=== PATIENT | male | born 1955 | race Caucasian/White ===

== ENCOUNTER 2021-02-18 07:40 | Inpatient (IN) ==
--- NOTE | 2021-02-02 11:20 | PAT Medication Instructions ---
Medication Instructions Date of Service February 02, 2021 Home Medications cholecalciferol (vitamin D3) [Vitamin D3] 10 mcg PO QAM cyanocobalamin (vitamin B-12) 500 mcg PO QAM gabapentin 300 mg PO TID omega-3 fatty acids [Fish Oil] 1,000 mg PO QAM oxycodone 7.5 mg PO DAILY zinc 50 mg PO QAM STOP taking 2 weeks before surgery (or as soon as possible if surgery is within 2 weeks) omega-3 fatty acids [Fish Oil] 1,000 mg PO QAM DO NOT take the morning of surgery cholecalciferol (vitamin D3) [Vitamin D3] 10 mcg PO QAM cyanocobalamin (vitamin B-12) 500 mcg PO QAM zinc 50 mg PO QAM Take morning of surgery With a small sip of water, OTHERWISE NOTHING TO EAT OR DRINK AFTER MIDNIGHT: gabapentin 300 mg PO TID oxycodone 7.5 mg PO DAILY (okay to take up to 4 hours prior to surgery if needed) Take evening before surgery gabapentin 300 mg PO TID Other Notes If you have any questions please call us at [phone] or [phone] or [phone] or [phone]
--- NOTE | 2021-02-05 08:41 | Anesthesiology Consultation ---
Date of Service February 05, 2021 Assessment & Plan (1) Encounter for pre-operative examination: COVID screening: Per assessment on 02/05: Travel screen negative, no known COVID- 19 positive contacts or current COVID-19 related symptoms. Surgeon arranging preop COVID testing (scheduled 02/16, [facility]- pt states he will confirm with surgeon regarding ability to have done at this location and speed at which their tests result). Awaiting results. Chart Review Chart Review: Acceptable Risk for Surgery and Patient seen in Pre Admission Testing Teaching & Discussion Pre-Anesthesia Teaching/Discussion Notes: Instructed NPO after midnight before surgery,except medications with 15 cc of water. Medication instructions provided according to the PAT guidelines. History Surgery Operation Date: 02/18/21 10:25 Proposed Procedures p L4-S1 Decompression/Fusion, Spinal Cord Monitoring - Rodrigo Rodriguez DO Height/Weight Height: 6 ft Weight: 85.2 kg Allergies Allergy/AdvReac Type Severity Reaction Status Date / Time No Known Allergies Allergy Unknown Verified 01/28/21 10:20 Medications Home Medications Medication Instructions Recorded Confirmed Last Taken cholecalciferol (vitamin D3) 10 10 mcg PO QAM 01/28/21 01/28/21 Unknown mcg (400 unit) chewable tablet (Vitamin D3) cyanocobalamin (vitamin B-12) 500 500 mcg PO QAM 01/28/21 01/28/21 Unknown mcg tablet gabapentin 300 mg capsule 300 mg PO TID 01/28/21 01/28/21 Unknown omega-3 fatty acids 1,000 mg PO QAM 01/28/21 01/28/21 Unknown oxycodone 7.5 mg tablet,oral ONLY 7.5 mg PO DAILY 01/28/21 01/28/21 Unknown (not for feeding tubes) zinc 50 mg tablet 50 mg PO QAM 01/28/21 01/28/21 Unknown Past Medical History Medical History Chronic anemia Degenerative disc disease Neuropathy Exercise / Class Metabolic Activity II 4-5 Yardwork/Stairs/Walk up hill (one FS (no CP, no SOB)) Past Family History Family History Grandfather (Paternal) Colon cancer Past Surgical History Surgical History History of arthroscopy R/L knees (x6 total) History of colonoscopy History of cystoscopy History of esophagogastroduodenoscopy (EGD) History of tooth extraction History of total knee replacement left x5, right x1 History of total shoulder replacement left Hx of vasectomy Past Anesthesia History No Hx of Anesthesia Complications and No Family Hx of Anesthesia Complications History of PONV No Hx of PONV and No Hx of Motion Sickness Social History Smoking Status: Current every day smoker tobacco type: cigarettes Smoking cigarettes per day: 7-8 cigs/day (tobacco use x 30 years) Do You Dip or Chew Tobacco: No Hx Alcohol Use: Yes Alcohol type: beer alcohol intake frequency: 3 or more drinks per day (3-4 "light" beers/day (evening)) Hx Substance Use: No substance use type: does not use Review of Systems Patient denies chest pain, shortness of breath, dyspnea on exertion, fever, chills, cough, wheezing, palpitations. Physical Exam Vital Signs VITALS BP 150/92 P 71 TEMP 98.3 SP02 96%RA RESP 16 PHYSICAL Full cervical extension range of motion. Full TMJ range of motion. TMD 3 finger breaths Mallampati Score 3 Dentition: intact, + caps (several) Lungs: clear throughout to auscultation Cardiac: regular rate and rhythm, no murmurs noted Spine: normal Carotid arteries: negative bruit Extremities: no edema Lab Results Anesthesia Preop Results Results Anesthesia Widget: WBC 5.81 K/uL (4.8-10.8) 02/05/21 Hgb 12.5 g/dL (14.0-18.0) L 02/05/21 Hct 37.5 % (42-52) L 02/05/21 Plt 245 K/uL (130-400) 02/05/21 Na 138 mmol/L (136-145) 02/05/21 K 4.8 mmol/L (3.5-5.1) 02/05/21 Cl 107 mmol/L (98-107) 02/05/21 CO2 28 mmol/L (21-32) 02/05/21 BUN 19 mg/dl (7-18) H 02/05/21 Creat 0.92 mg/dl (0.6-1.4) 02/05/21 Glucose Level 74 mg/dl (70-99) 02/05/21 PT 10.3 Seconds (9.0-12.0) 02/05/21 PTT 24.0 Seconds (21.0-31.0) 02/05/21 INR 1.0 (0.9-1.1) 02/05/21 Urine Color Dark Yellow 02/05/21 Urine Appearance Clear (Clear) 02/05/21 Urine pH 5.5 (4.5-7.5) 02/05/21 Urine Specific [place] 1.031 (1.000-1.030) H 02/05/21 Urine Protein Trace (Negative) H 02/05/21 Urine Glucose (UA) Negative (Negative) 02/05/21 Urine Ketones Trace (Negative) H 02/05/21 Urine Blood 1+ (Negative) H 02/05/21 Urine Nitrite Negative (Negative) 02/05/21 Urine Bilirubin 1+ (Negative) H 02/05/21 Urine Urobilinogen Negative (Negative) 02/05/21 Urine Leukocyte Esterase Negative (Negative) 02/05/21 Urine WBC (Auto) 1-5 /hpf (0-5) 02/05/21 Urine RBC (Auto) 10-30 /hpf (0-4) H 02/05/21 Urine Hyaline Casts (Auto) 5-10 /lpf (0-5) H 02/05/21 Urine Epithelial Cells (Auto) 5-10 /lpf (0-5) H 02/05/21 Urine Bacteria (Auto) Negative (Negative) 02/05/21 Blood Type O Positive 02/05/21 Antibody Screen NEGATIVE 02/05/21 Testing Electrocardiogram Date: 02/05/21 Normal sinus rhythm at 65 bpm. Early repolarization. Patient reports good functional status at PAT visit from same day. Chest X-Ray Date: 02/05/21 Findings: + NAD
[~2021-02-18 07:40] MED LIST: ACETAMINOPHEN 500 MG TAB PO SCH; CeleBREX 200 MG CAP PO SCH; GABAPENTIN 600 MG DOSE PO SCH; LR 15ML/HR IV SCH; ceFAZolin 2000MG 2,000 MG/15 ML SYR IV SCH
[2021-02-18] MEDS ORDERED: PROPOFOL IV EMULSION 10 MG/ML 20 ML VIAL IV ONE (08:38)
[2021-02-18] MEDS ORDERED: MIDAZOLAM HCL 1 MG/ML 2ML VIAL ONE (08:38)
[2021-02-18] MEDS ORDERED: GLYCOPYRROLATE 0.2 MG/ML VIAL ONE ×2 (08:38→12:08)
[2021-02-18] MEDS ORDERED: LIDOCAINE 2% 2 ML VIAL/AMP(20MG/ML) INFIL ONE (08:38)
[2021-02-18] MEDS ORDERED: HYDROmorphone INJ 2 MG/ML SYR/VIAL ONE (08:39)
[2021-02-18] MEDS ORDERED: KETAMINE 50 MG/5 ML SYRINGE ONE (08:39)
[2021-02-18] MEDS ORDERED: fentaNYL citrate 100 MCG/2 ML VIAL ONE (08:39)
[2021-02-18] MEDS ORDERED: ONDANSETRON INJ 2 MG/ML 2 ML VIAL IV PRN ×2 (08:59→15:35)
[2021-02-18] MEDS ORDERED: ATROPINE SULFATE 0.1 MG/ML 10ML SYR IV PRN (08:59)
[2021-02-18] MEDS ORDERED: ePHEDrine sulfate 50 MG/ML AMP IV PRN (08:59)
--- NOTE | 2021-02-18 09:37 | History & Physical Bridge Note ---
Date of Service February 18, 2021 History & Physical Bridge Note I have examined the patient, reviewed the History & Physical and in the interval since the performance of the History & Physical I have noted the following changes of clinical significance: no changes noted
--- NOTE | 2021-02-18 09:39 | History & Physical Report ---
Date of Service February 18, 2021 Assessment & Plan (1) Neurogenic claudication due to lumbar spinal stenosis: Plan: L4-S1 decompression fusion History of Present Illness Chief Complaint: Back and leg pain Primary Care Provider: Leander Stewart This is a 65-year-old male presents with chronic persistent back and leg pain after failing course of nonoperative care is here for surgical action. Allergies Allergy/AdvReac Type Severity Reaction Status Date / Time No Known Allergies Allergy Unknown Verified 01/28/21 10:20 Home Medications Medication Instructions Recorded Confirmed Type cholecalciferol (vitamin D3) 10 10 mcg PO QAM 01/28/21 02/18/21 History mcg (400 unit) chewable tablet (Vitamin D3) cyanocobalamin (vitamin B-12) 500 500 mcg PO QAM 01/28/21 02/18/21 History mcg tablet gabapentin 300 mg capsule 300 mg PO TID 01/28/21 02/18/21 History omega-3 fatty acids 1,000 mg PO QAM 01/28/21 02/18/21 History oxycodone 7.5 mg tablet,oral ONLY 7.5 mg PO DAILY 01/28/21 02/18/21 History (not for feeding tubes) zinc 50 mg tablet 50 mg PO QAM 01/28/21 02/18/21 History Past Med/Surg History Medical History Chronic anemia Degenerative disc disease Neuropathy Surgical History History of arthroscopy R/L knees (x6 total) History of colonoscopy History of cystoscopy History of esophagogastroduodenoscopy (EGD) History of tooth extraction History of total knee replacement left x5, right x1 History of total shoulder replacement left Hx of vasectomy Family History Grandfather (Paternal) Colon cancer Social History Smoking Status: Current every day smoker Cigarettes Per Day: 7-8 cigs/day (tobacco use x 30 years); Second Hand Exposure: No; Do You Dip or Chew Tobacco: No; Tobacco Cessation Education Requested by Patient: No Hx Alcohol Use: Yes Alcohol type: beer Hx Substance Use: No Preferred Language: Sinhala Communication Ability: Effective Mannequin Sander And Finisher Required: No Beliefs That Will Affect Care: None Current Living Situation: Spouse Other Information That Helps Us Care for You: No Feels Safe at Home: Yes Safety Concerns: Feels Safe At This Time Assistive Devices: Glasses Physical Exam Physical Exam: Patient is alert and oriented Heart regular rhythm Lungs clear to auscultation Results & Data ([facility]) Vital Signs (Past 12 Hours) Vital Signs Temp Pulse Resp BP Pulse Ox 02/18/21 08:05 36.5 C 61 18 143/82 H 97
[2021-02-18] MEDS ORDERED: BUPIVACAINE/EPINEPHRINE 0.5% MPF 1:200,000 30 ML VIAL ONE (09:58)
[2021-02-18] MEDS ORDERED: FLOSEAL HEMOSTATIC MATRIX 10ML TOP ONE (11:07)
[2021-02-18] MEDS ORDERED: NEOSTIGMINE METHYLSULFATE 1 MG/ML 10ML VIAL ONE (12:08)
--- NOTE | 2021-02-18 12:38 | Operative Report ---
Post Operative Report Pre & Post Diagnosis Operation Date: 02/18/21 09:35 Pre-Op Diagnosis: Neurogenic Claudication due to Lumbar Spinal Stenosis Spondylolisthesis L4-L5 Post-Op Diagnosis: Same I identified the patient and participated in the time-out.: Yes Procedure Operation Date: 02/18/21 09:35 Actual Procedures #1 lumbar decompression bilateral medial facetectomies and foraminotomies L3-4, L4-5 and L5-S1. #2 posterior spinal fusion L4-5 L5-S1. #3 placed posterior instrumentation L4-5 L5-S1. #4 interbody fusion L4-L5.. #5 placement peek cage 12 x 26 mm at L4-L5. #6 placement locally harvested morselized autograft and posterior gutters. #7 placement of I factor combined with vi toss interbody space and posterior gutters. Surgeon Rodrigo Rodriguez DO Cracker Dough Mixer Elisabeth Bentley Estimated Blood Loss 100 Findings Consistent with Post-Op Diagnosis Specimens None Indications This is a 65-year-old male presents with above-mentioned diagnosis since course of nonoperative care is here for the above-mentioned procedure. Description of Procedure Patient was met with identified informed consent obtained. Patient was then taken to the operative suite underwent a patient placed in prone position the Ac table top less than frame. All bony prominences well-padded eyes inspected to ensure no external pressure placed upon the. This point lumbar spine was prepped and draped in a sterile fashion. Sharp dissection with the assistance of Bovie cautery was performed down to and exposing the lamina and transverse processes of L4-L5 and S1 level bilaterally. From caudal cephalad fashion complete laminectomy of L5 L4 and proximal laminectomy L3 was performed including bilateral medial facetectomies and foraminotomies addressing severe spinal stenosis. Pedicle screws were then placed in L4-L5 and S1 levels bilaterally with assistance of fluoroscopy the proper sized sai placed. By way of a transforaminal approach on the right complete discectomy of L4-L5 was performed endplates curetted to subcortical bleeding bone and the 12 x 26 mm peek cage filled with I factor tapped in position. The rods were locked in final position bilaterally. The transverse processes of L4 and L5 and sacral ala were then burred to subcortical leading bone. I factor combined with Vitoss was placed in the posterior gutters. 15 round NAE drain inserted. The incision was then closed with Monocryl fascia 2-0 Vicryl subcutaneously and 4 Monocryl for final skin closure. Steri-Strip sterile dressings placed. Patient will continue PACU stable condition. Please note spinal cord monitoring was last that the procedure no changes noted. Lastly Elisabeth Bentley was present at the entire procedure involved the patient positioning complex portions of the surgery and final skin closure. I attest to the content of the Intraoperative Record and any orders documented therein. Any exceptions are noted below.
--- NOTE | 2021-02-18 12:42 | Fluoroscopy Report ---
FL lumbar spine 2-3V HISTORY: 65 years-old Male L4-S1 DECOMP/FUSION COMPARISON: None TECHNIQUE: 3 spot fluoroscopic images of the lumbar spine were obtained utilizing 22.6 seconds fluoro scopy time FINDINGS: Posterior interbody sai and screw fusion noted at L4-S1 with discectomy changes at L4-L5. Multilevel spondylitic spurring. The hardware appears intact. No acute fracture or unexpected retained foreign b parth identified. IMPRESSION: Fluoroscopic assistance as above. ACT 112: Negative or not required by law. The above report was generated using voice recognition software. It may contain grammatical, syntax o r spelling errors. Electronically signed by: Dustin Ratliff M.D. 02/18/2021 12:41 PM
[2021-02-18] MEDS: fentaNYL citrate 100 MCG/2 ML VIAL IV PRN ×4 (13:00→13:15)
[2021-02-18] MEDS: HYDROmorphone INJ 1 MG/ML SYRINGE IV PRN ×7 (13:25→14:00)
--- NOTE | 2021-02-18 15:31 | Anesthesiology Progress Note ---
Date of Service February 18, 2021 Anesthesia Post Procedure Vital Signs Vital Signs: Temp Pulse Pulse Resp BP BP Pulse Ox 02/18/21 15:17 36.8 C 77 20 150/82 H 100 02/18/21 14:20 36.6 C 77 23 139/90 100 02/18/21 14:10 36.6 C 61 12 139/83 94 02/18/21 14:00 36.6 C 71 14 142/84 H 96 02/18/21 13:50 36.6 C 81 12 138/82 81 L 02/18/21 13:40 36.6 C 71 15 149/85 H 96 02/18/21 13:30 76 25 H 149/81 H 100 02/18/21 13:20 76 25 H 149/81 H 100 02/18/21 13:10 67 11 L 138/74 99 02/18/21 13:00 74 11 L 148/81 H 100 02/18/21 12:50 36.4 C L 81 14 144/82 H 100 02/18/21 08:05 36.5 C 61 18 143/82 H 97 Pain Intensity Posterior Neck: Pain Intensity: 4 Back: Pain Intensity: 5 Transfer of Care Handoff Completed per policy Notes Mental Status: alert / awake / arousable and participated in evaluation Patient Amnestic to Procedure: Yes Nausea / Vomiting: adequately controlled Pain: adequately controlled Airway Patency, RR, SpO2: stable & adequate BP & HR: stable & adequate Hydration State: stable & adequate Anesthetic Complications: no major complications apparent and Pt Satisfied with anesthetic care
[2021-02-18] MEDS ORDERED: ACETAMINOPHEN 500 MG TAB PO PRN (15:35)
[2021-02-18] MEDS ORDERED: ONDANSETRON 4 MG OD TAB PO PRN (15:35)
[2021-02-18] MEDS ORDERED: diphenhydrAMINE Capsule 25 MG CAP PO PRN (15:35)
[2021-02-18] MEDS ORDERED: HYDROmorphone INJ 1 MG/ML SYRINGE IV PRN (15:35)
[2021-02-18] MEDS ORDERED: SOD PHOSPHATE/SOD BIPHOSPHATE ENEMA 132 ML BTL PR PRN (15:35)
[2021-02-18] MEDS ORDERED: ACETAMINOPHEN 1,000 MG/100 ML VIAL IV PRN (15:35)
[2021-02-18] MEDS ORDERED: LORazepam 0.5 MG TAB PO PRN (15:35)
[2021-02-18] MEDS ORDERED: traMADol HCL 50 MG TABLET PO PRN (15:35)
[2021-02-18] MEDS ORDERED: FAMOTIDINE 20 MG TAB PO PRN (15:35)
[2021-02-18] MEDS ORDERED: NALOXONE HCL 0.4 MG/1 ML VIAL/CARP IV PRN (15:35)
[2021-02-18] MEDS ORDERED: LORazepam 0.5 MG/1 ML VIAL IV PRN (15:35)
[2021-02-18] MEDS ORDERED: hydrOXYzine HCl 25 MG TAB PO PRN (15:35)
[2021-02-18] MEDS ORDERED: METOCLOPRAMIDE HCL INJ 5 MG/ML 2 ML VIAL IV PRN (15:35)
[2021-02-18] MEDS ORDERED: DO NOT ADMINISTER PNEUMOCOCCAL VACCINE PRN (15:35)
[2021-02-18] MEDS ORDERED: DO NOT ADMINISTER FLU VACCINE PRN (15:35)
[2021-02-18] MEDS ORDERED: ALUMINUM/MAGNESIUM SUSP 30 ML UDC PO PRN (15:35)
[2021-02-18] MEDS ORDERED: PROMETHAZINE HCL 12.5 MG in SODIUM CHLORIDE 0.9% 50 ML IV PRN (15:35)
[2021-02-18] MEDS: oxyCODONE HCL IR 5 MG TAB (IMMEDIATE RELEASE) PO PRN ×2 (15:58→20:26)
[2021-02-18] MEDS: LACTATED RINGER'S 1,000 ML IV SCH (15:58)
[2021-02-18] MEDS: GABAPENTIN 300 MG CAP PO SCH ×2 (16:44→20:27)
--- NOTE | 2021-02-18 16:51 | Consultation ---
Date of Consultation February 18, 2021 Assessment & Plan (1) Status post lumbar surgery: (2) Degenerative disc disease: Post op day# 0 S/P L4-S1 decompression and fusion by Dr Jennifer ORELLANA#100ml -pain management per ortho -wound management per ortho -PT/OT as appropriate -DVT prophylaxis per ortho -incentive spirometry -monitor H&H for acute blood loss anemia; pre-op Hgb: 12.5 (3) Chronic anemia: Baseline Hgb: 12.5 Monitor H&H DVT Prophylaxis -SCDs per ortho Disposition per primary service Follows with Dr Leander Stewart in [place], [place] for routine care Pt was seen and care coordinated with Dr Jimenez. See addendum Thank you for this consultation. We will follow the patient with you during their hospital stay. You can reach a [facility] via [employer]. Supervising Physician Co-Signing Physician Notes I saw this patient with the physician hospital administrative assistant, I participated in the history, physical, review of systems, and physical exam on this consult. I reviewed the medications with the patient and the physician hospital administrative assistant and helped reconcile the medications. I helped take a detailed family and social history as well. I formulated the assessment and plan personally with the physician hospital administrative assistant and went over it with the patient. ROS-No Headache, No Visual Changes, No Nausea, No Vomiting, No Fever, No Chills, No Neck Pain or Stiffness, No Chest Pain, No Palpitations, No SOB, No VOSS, No Cough, No Sputum, No Wheezing, No Abdominal Pain, No Diarrhea, No Hematemesis, No Hemoptysis, No Unexpected Weight Loss, No Flank pain, No Melena, No Hematochezia, No Frequency, No Urgency, No Burning, No Hematuria, No Rashes, No Diaphoresis. Appetite is Normal, Sore Back Physical Exam Gen-AAO x 3, NAD, Afebrile, +Drain Head-NCAT, EOMI, PERRLA, Anicteric Sclera, No Posterior Pharyngeal Erythema Neck-Supple, No JVD, No Thyromegaly, No Masses, No LAD, No Bruits Lungs-Clear to Auscultation Bilaterally, No Rales, No Rhonchi, No Wheezing, No Crepitus Chest-No S4, +S1, +S2, No S3, No Murmurs, No Rubs, No Gallops, No Ectopy Abdomen-Soft, Bowel Sounds Present, Non Tender, Non Distended, No Hepatomegaly, No Splenomegaly, No Palpable Masses, No Rebound, No Rigidity, No Guarding Musculoskeletal-No CVAT Extremities-No Cyanosis, No Clubbing, No Edema Nuero-Cranial Nerves II-XII grossly intact, Motor WNL, DTRs WNL, Strength WNL, Non Focal Psych-Normal Mood History of Present Illness Requesting Physician: Dr Rodirguez Reason for Consultation: post op medical management Attending Physician: Rodrigo Rodriguez DO History of Present Illness Pt is 65 y/o M with PMH Chronic anemia, DDD, neuropathy seen in Medical consultation s/p L4-S1 decompression and fusion today by Dr. Rodriguez. Postop patient reports pain controlled. Prior to surgery he reports tingling of bilateral feet and now feels that has decreased. Still reports some numbness of bilateral feet. Denies nausea, vomiting. Has tolerated water. Denies shortness of breath or chest pain. Has White catheter in place. Denies fever/chills, [place], dizziness, palpitations, cough, sore throat, choking, abdominal pain, extremity weakness, extremity edema, rashes, urinary symptoms. Allergies Allergy/AdvReac Type Severity Reaction Status Date / Time No Known Allergies Allergy Unknown Verified 01/28/21 10:20 Home Medications Medication Instructions Recorded Confirmed Type cholecalciferol (vitamin D3) 10 10 mcg PO QAM 01/28/21 02/18/21 History mcg (400 unit) chewable tablet (Vitamin D3) cyanocobalamin (vitamin B-12) 500 500 mcg PO QAM 01/28/21 02/18/21 History mcg tablet gabapentin 300 mg capsule 300 mg PO TID 01/28/21 02/18/21 History omega-3 fatty acids 1,000 mg PO QAM 01/28/21 02/18/21 History oxycodone 7.5 mg tablet,oral ONLY 7.5 mg PO DAILY 01/28/21 02/18/21 History (not for feeding tubes) zinc 50 mg tablet 50 mg PO QAM 01/28/21 02/18/21 History Patient History Medical History (Updated 02/18/21 @ 16:55 by Yolette Rao PA-C) Chronic anemia Degenerative disc disease Neuropathy Surgical History (Updated 02/18/21 @ 16:55 by Yolette Rao PA-C) History of arthroscopy R/L knees (x6 total) History of colonoscopy History of cystoscopy History of esophagogastroduodenoscopy (EGD) History of tooth extraction History of total knee replacement left x5, right x1 History of total shoulder replacement left Hx of vasectomy Family History Grandfather (Paternal) Colon cancer Social History Smoking Status: Current every day smoker Cigarettes Per Day: 7-8 cigs/day (tobacco use x 30 years); Second Hand Exposure: No; Do You Dip or Chew Tobacco: No; Tobacco Cessation Education Requested by Patient: No Hx Alcohol Use: Yes Alcohol type: beer Hx Substance Use: No Preferred Language: Swedish Communication Ability: Effective Metal Model Maker Required: No Beliefs That Will Affect Care: None Current Living Situation: Spouse Other Information That Helps Us Care for You: No Feels Safe at Home: Yes Safety Concerns: Feels Safe At This Time Assistive Devices: Walker Review of Systems Review of Systems: All systems reviewed & are unremarkable except as noted in HPI & below Physical Exam Physical Exam: General: no distress, WDWN Head: normocephalic, atraumatic Eyes: conjunctiva non-injected, anicteric ENT: normal inspection external ears, nose, mucous membranes moist Neck: supple, trachea midline Lungs: clear, no respiratory distress, no wheezing/rhonchi/rales CV: RRR, no murmur, no pretibial edema Abd: normal BS, soft, non-tender Back: surgical dressing in place, NAE drain with small amount serosanguineous drainage Ext: no cyanosis, no calf tenderness; bilateral pedal pushes and pulls intact, distal pulses intact bilaterally, sensation to light touch intact Neuro: A&O x 3, no focal deficits noted, normal affect Skin: warm, dry Results & Data ([facility]) Vital Signs (Past 12 Hours) Vital Signs Temp Pulse Pulse Resp BP BP Pulse Ox 02/18/21 16:24 36.5 C 83 16 144/75 H 99 02/18/21 16:02 36.4 C L 82 20 150/80 H 100 02/18/21 15:17 36.8 C 77 20 150/82 H 100 02/18/21 14:20 36.6 C 77 23 139/90 100 02/18/21 14:10 36.6 C 61 12 139/83 94 02/18/21 14:00 36.6 C 71 14 142/84 H 96 02/18/21 13:50 36.6 C 81 12 138/82 81 L 02/18/21 13:40 36.6 C 71 15 149/85 H 96 02/18/21 13:30 76 25 H 149/81 H 100 02/18/21 13:20 76 25 H 149/81 H 100 02/18/21 13:10 67 11 L 138/74 99 02/18/21 13:00 74 11 L 148/81 H 100 02/18/21 12:50 36.4 C L 81 14 144/82 H 100 02/18/21 08:05 36.5 C 61 18 143/82 H 97
[2021-02-18] MEDS: KETOROLAC TROMETHAMINE 15 MG/ML VIAL IV SCH ×2 (17:07→22:33)
[2021-02-18] MEDS: ceFAZolin 2000MG 2,000 MG/15 ML SYR IV SCH (17:37)
[2021-02-18] MEDS: HYDROmorphone INJ 0.5 MG/0.5 ML SYR IV PRN (18:37)
[2021-02-18] MEDS: DOCUSATE SODIUM/SENNA 50/8.6MG TAB PO SCH (20:27)
[2021-02-19] MEDS: oxyCODONE HCL IR 5 MG TAB (IMMEDIATE RELEASE) PO PRN ×6 (00:08→22:34)
[2021-02-19] MEDS: LACTATED RINGER'S 1,000 ML IV SCH (01:59)
[2021-02-19] MEDS: ceFAZolin 2000MG 2,000 MG/15 ML SYR IV SCH (02:00)
[2021-02-19] MEDS: KETOROLAC TROMETHAMINE 15 MG/ML VIAL IV SCH ×2 (04:07→10:45)
[2021-02-19] MEDS: POLYETHYLENE (MIRALAX) 17 GM PACK PO SCH ×3 (06:03→18:15)
[2021-02-19 06:40] LABS: Basophils # (auto) 0.01 K/uL (0-0.2); Basophils % (auto) 0.1 %; Eosinophils # (auto) 0.01 K/uL (0-0.5); Eosinophils % (auto) 0.1 %; Hematocrit (blood only) 28.3 % (42-52); Hemoglobin 9.8 g/dL (14.0-18.0); Immature Granulocytes # (auto) 0.02 K/uL (0.00-0.02); Immature Granulocytes % (auto) 0.2 %; Lymphocytes # (auto) 1.07 K/uL (1.2-3.4); Lymphocytes % (auto) 11.2 %; Mean Corpuscular Hgb Conc 34.6 g/dL (32-36); Mean Corpuscular Volume 95.3 fL (80-100); Mean Platelet Volume 9.5 fL (7.4-10.4); Monocytes % (auto) 10.5 %; Neutrophils # (auto) 7.43 K/uL (1.4-6.5); Neutrophils % (auto) 77.9 %; Platelet Count 217 K/uL (130-400); RDW Coefficient of Variation 12.2 % (11.5-14.5); RDW Standard Deviation 42.5 fL (36.4-46.3); Red Blood Count 2.97 M/uL (4.7-6.1); White Blood Count 9.54 K/uL (4.8-10.8)
[2021-02-19 07:14] LABS: BUN Creatinine Ratio 14.5 (10-20); Calcium 8.2 mg/dl (8.5-10.1); Creatinine Clr Calc Pharmacy 95.4 ml/min; Est GFR (African American) 106.5 ml/min; Est GFR (Non-African American) 91.9 ml/min; Potassium 4.1 mmol/L (3.5-5.1)
[2021-02-19] MEDS: HYDROmorphone INJ 0.5 MG/0.5 ML SYR IV PRN ×2 (08:10→16:49)
--- NOTE | 2021-02-19 08:16 | Orthopedic Progress Note ---
Date of Service February 19, 2021 Assessment & Plan (1) Neurogenic claudication due to lumbar spinal stenosis: Plan: This time initiate physical therapy monitor his NAE operatively discharge home in next few days. Admission and Anticipated Discharge Date Admission Date: February 18, 2021 Subjective Back pain controlled leg symptoms improved Physical Exam Physical Exam: Patient is good strength testing is comfortable. Results & Data ([facility]) Vital Signs (Past 12 Hours) Vital Signs Temp Pulse Pulse Resp BP BP Pulse Ox 02/19/21 07:37 36.9 C 85 18 119/65 98 02/19/21 03:00 37.0 C 96 H 16 124/69 99 02/18/21 22:00 37.3 C 99 H 16 158/85 H 91
[2021-02-19] MEDS: GABAPENTIN 300 MG CAP PO SCH ×3 (08:45→20:12)
[2021-02-19] MEDS: CYANOCOBALAMIN 500 MCG TABLET (VITAMIN B-12) PO SCH (08:46)
[2021-02-19] MEDS: CHOLECALCIFEROL 400 UNITS 10 MCG TAB PO SCH (08:46)
[2021-02-19] MEDS: ZINC SULFATE 220 MG CAPSULE PO SCH (08:47)
[2021-02-19] MEDS: OMEGA-3 (PURIFIED FISH OIL) 1 GM CAP PO SCH (08:47)
[2021-02-19] MEDS: MAGNESIUM HYDROXIDE SUSP 30 ML UDC PO PRN (16:46)
--- NOTE | 2021-02-19 16:54 | Hospitalist Progress Note ---
Date of Service February 19, 2021 Assessment & Plan (1) Status post lumbar surgery: (2) Degenerative disc disease: Plan: S/P L4-S1 decompression and fusion by Dr Rodriguez Acute blood loss and hemodilution related anemia POD#1 Pain control No indication for PRBC transfusion currently Continue PT OT Appreciate orthopedics input Continue Incentive spirometry (3) Chronic anemia: Plan: Monitor CBC Management as above DVT Px: As per Primary team Admission and Anticipated Discharge Date Admission Date: February 18, 2021 Subjective Patient is seen and examined at bedside States having back pain at surgical site Also reports constipation Reports chronic numbness of the feet unchanged Denies chest pain, dyspnea, dizziness, nausea, abdominal pain Review of Systems Review of Systems: All systems reviewed & are unremarkable except as noted in Subjective Physical Exam Physical Exam: Physical Exam: Vitals signs as noted above General Appearance:Moderately built and nourished, no apparent distress Head: normocephalic, Atraumatic Eyes: normal inspection, EOMI Neck: supple, Trachea midline Respiratory/Chest: Normal breath sounds, CTA Cardiovascular: S1, S2, No murmur Abdomen/GI:Soft, Non tender, Bowel sounds present Back: Surgical site in dressing Extremities/Musculoskeletal:normal inspection, no edema Neurologic/Psych:AAOX3, grossly no focal neurological deficits Skin: normal color, warm Results & Data Results & Data ([facility]) Vital Signs (Past 12 Hours) Vital Signs Temp Pulse Resp BP Pulse Ox 02/19/21 14:47 37.6 C H 77 18 143/82 H 99 02/19/21 11:46 37.0 C 81 18 137/77 100 02/19/21 07:37 36.9 C 85 18 119/65 98 Laboratory Results Short CBC 02/19/21 Range/Units 05:55 WBC 9.54 (4.8-10.8) K/uL Hgb 9.8 L (14.0-18.0) g/dL Hct 28.3 L (42-52) % Plt Count 217 (130-400) K/uL BMP 02/19/21 05:55 Sodium 137 Potassium 4.1 Chloride 107 Carbon Dioxide 27 BUN 13 Creatinine 0.87 Glucose 110 H Calcium 8.2 L
[2021-02-19] MEDS: DOCUSATE SODIUM/SENNA 50/8.6MG TAB PO SCH (20:11)
[2021-02-20] MEDS: POLYETHYLENE (MIRALAX) 17 GM PACK PO SCH ×4 (00:12→19:56)
[2021-02-20] MEDS: oxyCODONE HCL IR 5 MG TAB (IMMEDIATE RELEASE) PO PRN ×5 (02:31→21:02)
[2021-02-20] MEDS ORDERED: bisacodyL 10 MG SUPP PR PRN ×2 (04:54→08:00)
[2021-02-20 07:25] LABS: Hematocrit (blood only) 26.3 % (42-52); Hemoglobin 8.6 g/dL (14.0-18.0)
[2021-02-20 07:57] LABS: BUN Creatinine Ratio 12.2 (10-20); Calcium 7.9 mg/dl (8.5-10.1); Creatinine Clr Calc Pharmacy 89.2 ml/min; Est GFR (African American) 100.9 ml/min; Est GFR (Non-African American) 87.1 ml/min; Potassium 3.6 mmol/L (3.5-5.1)
[2021-02-20] MEDS: GABAPENTIN 300 MG CAP PO SCH ×3 (08:28→21:02)
[2021-02-20] MEDS: OMEGA-3 (PURIFIED FISH OIL) 1 GM CAP PO SCH (08:28)
[2021-02-20] MEDS: CYANOCOBALAMIN 500 MCG TABLET (VITAMIN B-12) PO SCH (08:28)
[2021-02-20] MEDS: ZINC SULFATE 220 MG CAPSULE PO SCH (08:28)
[2021-02-20] MEDS: CHOLECALCIFEROL 400 UNITS 10 MCG TAB PO SCH (08:29)
[2021-02-20] MEDS: dexAMETHasone 8 MG in SYRINGE 0 ML IV SCH (08:29)
--- NOTE | 2021-02-20 09:55 | Orthopedic Progress Note ---
Date of Service February 20, 2021 Assessment & Plan (1) Neurogenic claudication due to lumbar spinal stenosis: Plan: This time continue physical therapy monitor his NAE output anticipate discharge home this weekend. Admission and Anticipated Discharge Date Admission Date: February 18, 2021 Subjective Patient complaining of considerable back pain. Leg symptoms markedly improved. Physical Exam Physical Exam: On exam is good strength testing. He has obvious discomfort with transitions. Results & Data ([facility]) Vital Signs (Past 12 Hours) Vital Signs Temp Pulse Resp BP Pulse Ox 02/20/21 06:30 37.5 C 96 H 16 135/79 94 02/20/21 03:14 37.7 C H 104 H 93 02/19/21 22:30 37.7 C H 108 H 17 152/81 H 94
--- NOTE | 2021-02-20 16:33 | Hospitalist Progress Note ---
Date of Service February 20, 2021 Assessment & Plan (1) Status post lumbar surgery: (2) Degenerative disc disease: Plan: S/P L4-S1 decompression and fusion by Dr Rodriguez Acute blood loss and hemodilution related anemia POD#2 Pain control Hb 8.6 today Transfuse PRBCs as needed Continue PT OT Appreciate orthopedics input Continue Incentive spirometry Continue bowel regimen (3) Chronic anemia: Plan: Monitor CBC Management as above DVT Px: As per Primary team Admission and Anticipated Discharge Date Admission Date: February 18, 2021 Subjective Patient is seen and examined at bedside Back pain, feet numbness better today Had small bowel movement No new complaints Denies chest pain, dyspnea, dizziness, nausea, abdominal pain Review of Systems Review of Systems: All systems reviewed & are unremarkable except as noted in Subjective Physical Exam Physical Exam: Physical Exam: Vitals signs as noted above General Appearance:Moderately built and nourished, no apparent distress Head: normocephalic, Atraumatic Eyes: normal inspection, EOMI Neck: supple, Trachea midline Respiratory/Chest: Normal breath sounds, CTA Cardiovascular: S1, S2, No murmur Abdomen/GI:Soft, Non tender, Bowel sounds present Back: Surgical site in dressing Extremities/Musculoskeletal:normal inspection, no edema Neurologic/Psych:AAOX3, grossly no focal neurological deficits Skin: normal color, warm Results & Data Results & Data ([facility]) Vital Signs (Past 12 Hours) Vital Signs Temp Pulse Resp BP Pulse Ox 02/20/21 15:00 37.2 C 87 20 147/82 H 96 02/20/21 06:30 37.5 C 96 H 16 135/79 94 Laboratory Results Short CBC 02/20/21 Range/Units 06:32 Hgb 8.6 L (14.0-18.0) g/dL Hct 26.3 L (42-52) % BMP 02/20/21 06:32 Sodium 134 L Potassium 3.6 Chloride 103 Carbon Dioxide 28 BUN 11 Creatinine 0.93 Glucose 101 H Calcium 7.9 L
[2021-02-20] MEDS: MAGNESIUM HYDROXIDE SUSP 30 ML UDC PO PRN (16:51)
[2021-02-20] MEDS: DOCUSATE SODIUM/SENNA 50/8.6MG TAB PO SCH (21:02)
[2021-02-21] MEDS: oxyCODONE HCL IR 5 MG TAB (IMMEDIATE RELEASE) PO PRN ×2 (00:57→08:49)
[2021-02-21 07:37] LABS: Hematocrit (blood only) 27.7 % (42-52); Hemoglobin 9.5 g/dL (14.0-18.0)
[2021-02-21] MEDS: CYANOCOBALAMIN 500 MCG TABLET (VITAMIN B-12) PO SCH (08:42)
[2021-02-21] MEDS: CHOLECALCIFEROL 400 UNITS 10 MCG TAB PO SCH (08:42)
[2021-02-21] MEDS: GABAPENTIN 300 MG CAP PO SCH (08:42)
[2021-02-21] MEDS: ZINC SULFATE 220 MG CAPSULE PO SCH (08:42)
[2021-02-21] MEDS: OMEGA-3 (PURIFIED FISH OIL) 1 GM CAP PO SCH (08:42)
[2021-02-21] MEDS: dexAMETHasone 8 MG in SYRINGE 0 ML IV SCH (08:42)
--- NOTE | 2021-02-21 09:49 | Discharge Summary ---
Date of Service February 21, 2021 Admission HPI Per Admitting Provider This is a 65-year-old male presents with chronic persistent back and leg pain after failing course of nonoperative care is here for surgical action. Principal Diagnosis Lumbar spinal stenosis with neurogenic claudication Discharge Data Allergies Allergy/AdvReac Type Severity Reaction Status Date / Time No Known Allergies Allergy Unknown Verified 01/28/21 10:20 Consultations 02/18/21 15:35 Consult Hospitalist Routine Procedures Performed Operation Date: 02/18/21 09:35 Actual Procedures p L4-S1 Decompression Fusion with Insertion of Interbody, Spinal Cord Monitoring(Not Applicable) - Rodrigo Rodriguez DO Ordered Studies 02/18/21 09:35 FL lumbar spine 2-3V Routine Hospital Course (1) Neurogenic claudication due to lumbar spinal stenosis: Patient with lumbar decompression fusion trial exhausting orthopedic for possibly. Postop day 1 he was up and ambulating place postop day #2 on postop day #3 pain was well controlled. Excellent strength testing. NAE drain decreasing appropriately. Subsequent discharge home. Discharge orders instructions from the chart for further review. Total Time Total Time Spent Total Time Spent (In Minutes): 20 minutes Discharge Plan Discharge Items Patient Disposition: Home - Self-Care Reason For Visit: Spinal Stenosis, Lumbar Region Without Neurogenic Discharge Diagnosis: Lumbar spinal stenosis with neurogenic claudication Activity: As commented below Non-emergency contact: Primary Care Provider Call non-emergency contact if: you have any medication questions Follow-up/Referrals: Leander Stewart D.O. [Primary Care Provider] - Diet: Regular Addtl Attending Provider Instructions: ACTIVITY RECOMMENDATIONS: SELF CARE INSTRUCTIONS AFTER THORACIC/LUMBAR FUSIONS 1. You may walk to your tolerance. It is good exercise for your legs and back. Expect some back and intermittent leg aches and pains. 2. You may perform "counter-top" level activities (make a sandwich, kim with a project, etc.). 3. No bending or lifting of more than 10 pounds or back twisting of any nature (roll like a log when turning in bed). 4. You may ride in a car for 20-30 minutes at a time. No driving until after your first visit with your doctor. 5. Frequent changes of position and restricting sitting to 30 minutes at a time will help limit the amount of back spasms and stiffness you may experience. 6. You may discontinue the use of ambulatory aids (cane, crutches, etc.) once your strength and confidence allow. 7. You may power lineman the shower and let water strike your incision when you arrive home at least once daily. Do not take a tub bath, sit in a hot tub or go into a swimming pool until after your first recheck in the office. SPECIAL CARE INSTRUCTIONS: VERY IMPORTANT TO READ AND REVIEW A. Your surgical incision has been closed with a cosmetic suture under the skin that will dissolve in about 6 weeks. In 14 days, you can use a pair of clean scissors and cut the suture that is left outside of the skin at the ends of your incision. 1. The small skin tapes can be removed 7 days after surgery if they have not fallen off by that point. 2. You may keep the wound open to air as much as possible to promote healing after post-op day number 5 unless told otherwise by your doctor. 3. If you think the wound looks like it is becoming infected (redness or worsening drainage) and/or you are experiencing fever, chill or worsening back pain and muscle spasms, contact the office so that we may evaluate you as soon as possible. B. Complications are uncommon, but please contact us if you have any signs or symptoms of: 1. wound infection (fever higher than 102.5 degrees F, redness, separation of wound, drainage, or increasing pain from the incision) 2. blood clots in legs (pain, swelling, redness and warmth in legs) 3. urinary tract infection (fever higher than 102.5 degrees F, burning upon urination or increased frequency of urination) 4. nerve problems (inability to walk on your toes or heels, numbness, loss of bowel or bladder control) 5. any other symptoms that concern you C. Please call the office at if you have any concerns or questions about your operation or recovery. D. No smoking! Smoking drastically decreases the chance of a solid fusion. E. Do not take any anti-inflammatory medications (Indocin, Advil, Motrin, Aspirin, Naprosyn, etc.) as these may inhibit the chance of a solid fusion. Tylenol is okay to take for pain. MANAGING PAIN AFTER SPINAL SURGERY 1. Narcotic medication is intended for short-term use and will be provided for surgical pain. Surgical pain usually lasts for a period of 4-6 weeks. Narcotic medication includes Percocet, Vicodin, Darvocet, Tylenol #3 or Lortab. 2. Longer-term pain is more appropriately treated with non-narcotic medication such as Tylenol ES. 3. Muscle spasm is not appropriately treated with narcotics. Muscle relaxers such as Soma, Flexeril or Skelaxin can be used along with Tylenol ES. 4. Remember that we all live with some "aches and pains". This is not unusual or uncommon after an injury or as we get older. a. Back pain is expected and may include muscle spasms for 4 to 6 weeks after surgery. The pain should gradually improve. If the pain worsens for no apparent reason, please contact the office. b. Intermittent leg pain may also be experienced and should not be concerned about unless it worsens for no apparent reason. If so, please contact the office. 5. We will provide appropriate medication within the normal guidelines of their prescribed use. We will also be very cautious and aware of potential abuse and extended duration of patients' medication needs. a. Pain medications are for your comfort and to assist with sleep and rest so that the tissue can heal. They are not provided in order to return to normal activity and should not be used through the day. To do so or worsening pain at night can result from ongoing tissue damage and development of tolerance to the prescribed medicine. 6. Please allow 2-3 days to process refills. Prescriptions will not be mailed but must be picked up at the office. FOLLOW UP VISIT: Keep your scheduled follow-up appointment. Any questions, please call the office at . Pending Studies at Discharge: No Stand-Alone Forms: My [facility] [employer], Smoking Cessation Medications and DC Order Prescriptions: New tramadol 50 mg tablet 50 mg PO Q6H PRN (Reason: pain, moderate) Qty: 30 RF: 0 oxycodone 5 mg tablet 5 mg PO Q6H PRN (Reason: pain, severe) Qty: 30 RF: 0 Continued cyanocobalamin (vitamin B-12) 500 mcg Tablet 500 mcg PO QAM RF: 0 gabapentin 300 mg Capsule 300 mg PO TID RF: 0 zinc 50 mg Tablet 50 mg PO QAM RF: 0 omega-3 fatty acids Capsule 1,000 mg PO QAM RF: 0 cholecalciferol (vitamin D3) [Vitamin D3] 10 mcg (400 unit) Tablet,Chewable 10 mcg PO QAM RF: 0 oxycodone 7.5 mg Tablet, Oral Only 7.5 mg PO DAILY RF: 0 Discharge Orders: Discharge Order (Routine); Ordered 02/21/21 Ordered By: Rodrigo Rodriguez Admission Data Admit Date/Time: 02/18/21 12:41 Attending Provider: Rodrigo Rodriguez Admit Provider: Rodrigo Rodriguez Primary Care Provider: Leander Stewart Other Providers: Patel Martinez
== END 2021-02-21 11:49 | disposition home or self-care (01) | DRG 454 ==
LOC: ASU 07:40 → 3E 12:41

== ENCOUNTER 2023-07-21 08:31 | Observation (INO) ==
--- NOTE | 2023-07-14 11:36 | Anesthesiology Consultation ---
Date of Service July 14, 2023 Assessment & Plan (1) Encounter for pre-operative examination: - awaiting surgeon ordered medical clearance. - will attempt to obtain copy of COVID test completed by PCP office; otherwise acceptable to proceed if symptoms resolve. 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 Shilpa WOODS per patient. I called patient and he states that he feels cough has not improved. He was instructed to contact office 07/19- 07/20/23 if symptoms have not fully resolved. He verbalized understanding and agreement, denied questions or concerns. Chart Review Chart Review: Pending: Refer to Additional Notes / Consult section and Patient NOT seen in Pre Admission Testing History Surgery Operation Date: 07/21/23 12:45 Proposed Procedures p Spinal Cord Stimulator Placement - Rodrigo Rodriguez DO Height/Weight Height: 6 ft Weight: 83.915 kg Allergies Allergy/AdvReac Type Severity Reaction Status Date / Time No Known Allergies Allergy Unknown Verified 07/14/23 10:45 Medications Home Medications Medication Instructions Recorded Confirmed Last Taken gabapentin 300 mg capsule 300 mg PO TID 01/28/21 07/14/23 02/18/21 05:30 oxycodone 5 mg tablet 5 mg PO Q6H PRN pain, severe #30 02/20/21 07/14/23 Unknown tabs tramadol 50 mg tablet 50 mg PO Q6H PRN pain, moderate 02/20/21 07/14/23 Unknown #30 tabs alfuzosin 10 mg tablet,extended 10 mg PO QPM 07/14/23 07/14/23 Unknown release 24 hr calcium 600 mg capsule 600 mg PO QAM 07/14/23 07/14/23 Unknown cephalexin 1 dose PO DAILY 07/14/23 07/14/23 Unknown folic acid 1 mg tablet 1 mg PO QAM 07/14/23 07/14/23 Unknown methotrexate sodium 2.5 mg tablet 2.5 mg PO UD 07/14/23 07/14/23 Unknown prednisone 1 mg tablet 1 mg PO UD 07/14/23 07/14/23 Unknown Past Medical History Medical History Rheumatoid arthritis Chronic anemia Degenerative disc disease Neuropathy Past Family History Family History Grandfather (Paternal) Colon cancer Past Surgical History Surgical History History of lumbar surgery History of shoulder surgery Left History of cystoscopy History of total knee replacement left x6, right x1 History of arthroscopy R/L knees (x6 total) Hx of vasectomy History of esophagogastroduodenoscopy (EGD) History of colonoscopy History of tooth extraction Social History Smoking Status: Current every day smoker tobacco type: cigarettes Smoking cigarettes per day: 7-8 cigs/day (tobacco use x 30 years) Do You Dip or Chew Tobacco: No Hx Alcohol Use: Yes Alcohol type: beer alcohol intake frequency: 3 or more drinks per day Hx Substance Use: No substance use type: does not use Lab Results Anesthesia Preop Results Results Anesthesia Widget: WBC 5.67 K/ul (4.8-10.8) 07/01/23 Hgb 12.0 g/dl (14.0-18.0) L 07/01/23 Hct 34.6 % (42.0-52.0) L 07/01/23 Plt 272 K/uL (130-400) 07/01/23 Na 133 mmol/L (136-145) L 07/01/23 K 4.6 mmol/L (3.5-5.1) 07/01/23 Cl 102 mmol/L (98-107) 07/01/23 CO2 23 mmol/L (21-32) 07/01/23 BUN 18 mg/dl (6-23) 07/01/23 Creat 0.88 mg/dl (0.6-1.4) 07/01/23 Glucose Level 100 mg/dl (70-99(Fasting)) H 07/01/23 PT 11.2 Seconds (9.0-12.0) 07/01/23 PTT 26 Seconds (21-31) 07/01/23 INR 1.0 (0.9-1.1) 07/01/23 Urine Color Dark Yellow 07/01/23 Urine Appearance Clear (Clear) 07/01/23 Urine pH 6.0 (4.5-7.5) 07/01/23 Urine Specific [place] 1.021 (1.000-1.030) 07/01/23 Urine Protein Negative (Negative) 07/01/23 Urine Glucose (UA) Negative (Negative) 07/01/23 Urine Ketones Trace (Negative) H 07/01/23 Urine Blood 2+ (Negative) H 07/01/23 Urine Nitrite Negative (Negative) 07/01/23 Urine Bilirubin Negative (Negative) 07/01/23 Urine Urobilinogen Negative (Negative) 07/01/23 Urine Leukocyte Esterase Negative (Negative) 07/01/23 Urine WBC (Auto) 1-5 /hpf (0-5) 07/01/23 Urine RBC (Auto) >30 /hpf (0-4) H 07/01/23 Urine Hyaline Casts (Auto) 0 /lpf (0-5) 07/01/23 Urine Epithelial Cells (Auto) 0-5 /lpf (0-5) 07/01/23 Urine Bacteria (Auto) Negative (Negative) 07/01/23 Blood Type O Positive 07/01/23 Antibody Screen NEGATIVE 07/01/23 Testing Electrocardiogram Date: 07/01/23 NSR, rate 71 bpm Chest X-Ray Date: 07/01/23 No acute process.
[~2023-07-21 08:31] MED LIST changes: +GABAPENTIN 300 MG CAP PO SCH; -GABAPENTIN 600 MG DOSE PO SCH; +LR 60ML/HR IV SCH
[2023-07-21] MEDS ORDERED: MIDAZOLAM HCL 1 MG/ML 2ML VIAL ONE (08:46)
[2023-07-21] MEDS ORDERED: fentaNYL citrate PF 100 MCG/2 ML VIAL ONE ×2 (08:46→12:41)
[2023-07-21] MEDS ORDERED: ONDANSETRON INJ 2 MG/ML 2 ML VIAL ONE (08:46)
[2023-07-21] MEDS ORDERED: PROPOFOL IV EMULSION 10 MG/ML 20 ML VIAL IV ONE (08:46)
[2023-07-21] MEDS ORDERED: DEXAMETHASONE SOD INJ 4 MG/ML VIAL ONE (08:46)
[2023-07-21] MEDS ORDERED: ATROPINE SULFATE 0.1 MG/ML 10ML SYR IV PRN (09:50)
[2023-07-21] MEDS ORDERED: ePHEDrine sulfate 50 MG/ML AMP IV PRN (09:50)
[2023-07-21] MEDS ORDERED: ONDANSETRON INJ 2 MG/ML 2 ML VIAL IV PRN ×2 (09:50→18:10)
[2023-07-21] MEDS ORDERED: PROMETHAZINE HCL 6.25 MG in SODIUM CHLORIDE 0.9% 50 ML IV PRN (09:50)
--- NOTE | 2023-07-21 10:42 | History & Physical Bridge Note ---
Date of Service July 21, 2023 History & Physical Bridge Note I have examined the patient, reviewed the History & Physical and in the interval since the performance of the History & Physical I have noted the following changes of clinical significance: no changes noted
--- NOTE | 2023-07-21 10:43 | History & Physical Report ---
Date of Service July 21, 2023 Assessment & Plan (1) Postlaminectomy syndrome of lumbar region: Plan: Spinal cord stimulator placement History of Present Illness Chief Complaint: Back and bilateral leg pain Primary Care Provider: Leander Stewart This is a 68-year-old male well-known to me the presents after undergoing successful spinal cord stimulator trial and is here for permanent placement. Allergies Allergy/AdvReac Type Severity Reaction Status Date / Time No Known Allergies Allergy Unknown Verified 07/21/23 09:03 Home Medications Medication Instructions Recorded Confirmed Type gabapentin 300 mg capsule 300 mg PO TID 01/28/21 07/21/23 History oxycodone 5 mg tablet 5 mg PO Q6H PRN pain, severe #30 02/20/21 07/14/23 Rx tabs tramadol 50 mg tablet 50 mg PO Q6H PRN pain, moderate 02/20/21 07/21/23 Rx #30 tabs alfuzosin 10 mg tablet,extended 10 mg PO QPM 07/14/23 07/21/23 History release 24 hr calcium 600 mg capsule 600 mg PO QAM 07/14/23 07/21/23 History prednisone 1 mg tablet 1 mg PO UD 07/14/23 07/21/23 History Past Med/Surg History Medical History Rheumatoid arthritis Chronic anemia Degenerative disc disease Neuropathy Surgical History History of lumbar surgery History of shoulder surgery Left History of cystoscopy History of total knee replacement left x6, right x1 History of arthroscopy R/L knees (x6 total) Hx of vasectomy History of esophagogastroduodenoscopy (EGD) History of colonoscopy History of tooth extraction Family History Grandfather (Paternal) Colon cancer Social History Smoking Status: Current every day smoker Cigarettes Per Day: 7-8 cigs/day (tobacco use x 30 years); Second Hand Exposure: No; Do You Dip or Chew Tobacco: No; Tobacco Cessation Education Requested by Patient: No Hx Alcohol Use: Yes Alcohol type: beer Hx Substance Use: No Preferred Language: Georgian Communication Ability: Effective Financial Writer Required: No Beliefs That Will Affect Care: None marital status: Current Living Situation: Spouse Feels Safe at Home: Yes Safety Concerns: Feels Safe At This Time Assistive Devices: Glasses Physical Exam Physical Exam: Patient is alert and oriented Heart regular rhythm Lungs clear Results & Data Results & Data Vital Signs (Past 12 Hours) Vital Signs Temp Pulse Resp BP Pulse Ox O2 Del Method 07/21/23 09:14 36.6 C 64 16 132/78 98 Room Air
[2023-07-21] MEDS ORDERED: ceFAZolin 330 MG/ML 1 GM VIAL ONE (11:11)
[2023-07-21] MEDS ORDERED: BUPIVACAINE/EPINEPHRINE 0.25% 1:200,000 30 ML VIAL ONE (11:11)
[2023-07-21] MEDS ORDERED: SUGAMMADEX SODIUM 200 MG/2 ML VIAL IV ONE (11:54)
[2023-07-21] MEDS ORDERED: oxyCODONE HCL IR 5 MG TAB (IMMEDIATE RELEASE) PO PRN ×2 (13:05→18:10)
[2023-07-21] MEDS ORDERED: traMADol HCL 50 MG TABLET PO PRN ×3 (13:05→18:10)
[2023-07-21] MEDS ORDERED: HYDROmorphone INJ 0.5 MG/0.5 ML SYR IV PRN ×3 (13:05→18:10)
--- NOTE | 2023-07-21 13:05 | Operative Report ---
Post Operative Report Pre & Post Diagnosis Operation Date: 07/21/23 10:05 Pre-Op Diagnosis: Postlaminectomy syndrome of lumbar region Post-Op Diagnosis: Postlaminectomy syndrome of lumbar region I identified the patient and participated in the time-out.: Yes Procedure Operation Date: 07/21/23 10:05 Actual Procedures #1 T9 and T10 laminotomies. #2 placement of Nevro spinal cord stimulator paddle extending from T8-T10 with rechargeable battery. Surgeon Rodrigo Rodriguez, DO Post Commander None Estimated Blood Loss 150 Findings Consistent with Post-Op Diagnosis Specimens None Indications This is a 68-year-old male presents above-mentioned diagnosis after undergoing a successful spinal cord stimulator trial is here for permanent placement. Description of Procedure Patient was met with identified informed consent obtained. Patient was then taken to the operative suite underwent patient placed in a prone position on the Ac table top of the Bryan frame. All bony prominences well-padded eyes inspected to ensure no external pressure placed upon the. This point the thoracolumbar spine was prepped and draped normal sterile fashion. The assistance of fluoroscopy identify the T10-T11 into the interlaminar space. Sharp dissection with assistance bradycardia from down to and exposing this level. A midline laminotomy was then created large enough to pass a spinal cord stimulator cephalad. Unfortunately doing so with I had tremendous interference with epidural leukocytosis. Subsequently had to perform a second laminotomy at T9 to adequately open up the dorsum of the canal and get appropriate placement of the paddle. Paddle was ultimately placed extending from T8-T10. Anchors were then attached and it was sutured into position. I then created a pocket over the right flank and by way of a trocar the leads were taken to the pocket attached the battery tested for impedances. The incisions were then irrigated battery placed within the pocket and they were closed with subcutaneous Vicryl and 4 Monocryl for final skin closure. Steri-Strip sterile dressings placed. Patient waken taken to PACU in stable condition. I attest to the content of the Intraoperative Record and any orders documented therein. Any exceptions are noted below.
[2023-07-21] MEDS: fentaNYL citrate PF 100 MCG/2 ML VIAL IV PRN ×4 (13:20→14:02)
[2023-07-21] MEDS ORDERED: LABETALOL HCL IV 5 MG/ML 20ML IV STA (14:22)
[2023-07-21] MEDS ORDERED: KETOROLAC 30 MG/ML VIAL ONE (14:27)
[2023-07-21] MEDS ORDERED: KETOROLAC TROMETHAMINE 15 MG/ML VIAL IV ONE (14:30)
[2023-07-21] MEDS ORDERED: KETOROLAC 30 MG/ML VIAL IV ONE (14:32)
[2023-07-21] MEDS ORDERED: HYDROmorphone INJ 2 MG/ML SYR/VIAL ONE (14:57)
[2023-07-21] MEDS ORDERED: ACETAMINOPHEN 1000 MG/100 ML IV IV ONE (14:58)
[2023-07-21] MEDS: HYDROmorphone INJ 2 MG/ML SYR/VIAL IV PRN ×3 (14:58→18:15)
[2023-07-21] MEDS ORDERED: ACETAMINOPHEN 1,000 MG/100 ML VIAL IV STA (15:07)
--- NOTE | 2023-07-21 16:20 | Anesthesiology Progress Note ---
Date of Service July 21, 2023 Anesthesia Post Procedure Vital Signs Vital Signs: Temp Pulse Pulse Resp BP Pulse Ox O2 Del Method 07/21/23 16:10 89 18 155/83 H 95 Room Air 07/21/23 16:00 88 22 163/87 H 95 Room Air 07/21/23 15:50 85 20 170/89 H 98 Room Air 07/21/23 15:40 88 18 163/93 H 98 Room Air 07/21/23 15:30 36.5 C 79 20 144/98 H 98 Room Air 07/21/23 15:20 80 18 192/101 H 97 Room Air 07/21/23 15:10 72 20 195/96 H 97 Room Air 07/21/23 15:00 76 16 175/99 H 97 Room Air 07/21/23 14:50 79 13 184/101 H 100 Room Air 07/21/23 14:40 75 20 161/94 H 100 Room Air 07/21/23 14:30 71 20 196/102 H 100 Room Air 07/21/23 14:20 73 20 186/101 H 100 Room Air 07/21/23 14:10 76 16 180/96 H 100 Room Air 07/21/23 14:00 74 12 164/91 H 100 Room Air 07/21/23 13:50 76 16 165/98 H 98 Room Air 07/21/23 13:40 78 14 158/91 H 98 Room Air 07/21/23 13:30 77 20 143/91 H 98 Room Air 07/21/23 13:20 79 16 151/86 H 97 Room Air 07/21/23 13:10 36.0 C L 80 14 152/88 H 100 Oxymask 07/21/23 09:14 36.6 C 64 16 132/78 98 Room Air O2 Flow Rate 07/21/23 16:10 07/21/23 16:00 07/21/23 15:50 07/21/23 15:40 07/21/23 15:30 07/21/23 15:20 07/21/23 15:10 07/21/23 15:00 07/21/23 14:50 07/21/23 14:40 07/21/23 14:30 07/21/23 14:20 07/21/23 14:10 07/21/23 14:00 07/21/23 13:50 07/21/23 13:40 07/21/23 13:30 07/21/23 13:20 07/21/23 13:10 6 07/21/23 09:14 Pain Intensity Lower Back: Pain Intensity: 3 Transfer of Care Handoff Completed per policy Notes Mental Status: alert / awake / arousable Patient Amnestic to Procedure: Yes Nausea / Vomiting: adequately controlled Pain: adequately controlled Airway Patency, RR, SpO2: stable & adequate BP & HR: stable & adequate Hydration State: stable & adequate Anesthetic Complications: no major complications apparent
[2023-07-21] MEDS ORDERED: hydrOXYzine HCl 25 MG TAB PO PRN (18:10)
[2023-07-21] MEDS ORDERED: METOCLOPRAMIDE HCL INJ 5 MG/ML 2 ML VIAL IV PRN (18:10)
[2023-07-21] MEDS ORDERED: bisacodyL 10 MG SUPP PR PRN (18:10)
[2023-07-21] MEDS ORDERED: SOD PHOSPHATE/SOD BIPHOSPHATE ENEMA 132 ML BTL PR PRN (18:10)
[2023-07-21] MEDS ORDERED: ACETAMINOPHEN 1,000 MG/100 ML VIAL IV PRN (18:10)
[2023-07-21] MEDS ORDERED: ALUMINUM/MAGNESIUM SUSP 30 ML UDC PO PRN (18:10)
[2023-07-21] MEDS ORDERED: DO NOT ADMINISTER FLU VACCINE PRN (18:10)
[2023-07-21] MEDS ORDERED: PROMETHAZINE HCL 12.5 MG in SODIUM CHLORIDE 0.9% 50 ML IV PRN (18:10)
[2023-07-21] MEDS ORDERED: DO NOT ADMINISTER PNEUMOCOCCAL VACCINE PRN (18:10)
[2023-07-21] MEDS ORDERED: LORazepam 0.5 MG TAB PO PRN (18:10)
[2023-07-21] MEDS ORDERED: diphenhydrAMINE Capsule 25 MG CAP PO PRN (18:10)
[2023-07-21] MEDS ORDERED: FAMOTIDINE 20 MG TAB PO PRN (18:10)
[2023-07-21] MEDS ORDERED: HYDROmorphone INJ 1 MG/ML SYRINGE IV PRN (18:10)
[2023-07-21] MEDS ORDERED: NALOXONE HCL 0.4 MG/1 ML VIAL/CARP IV PRN (18:10)
[2023-07-21] MEDS ORDERED: ONDANSETRON 4 MG OD TAB PO PRN (18:10)
[2023-07-21] MEDS ORDERED: MAGNESIUM HYDROXIDE SUSP 30 ML UDC PO PRN (18:10)
[2023-07-21] MEDS ORDERED: LORazepam 0.5 MG in SYRINGE 0.25 ML IV PRN (18:10)
[2023-07-21] MEDS: ACETAMINOPHEN 500 MG TAB PO PRN (20:22)
[2023-07-21] MEDS: ceFAZolin 2000MG 2,000 MG/15 ML SYR IV SCH (20:39)
[2023-07-21] MEDS: GABAPENTIN 300 MG CAP PO SCH (20:40)
[2023-07-21] MEDS ORDERED: DOCUSATE SODIUM/SENNA 50/8.6MG TAB PO SCH (21:00)
[2023-07-21] MEDS ORDERED: TAMSULOSIN HCL 0.4 MG CAP PO SCH (21:00)
[2023-07-22] MEDS: oxyCODONE HCL IR 5 MG TAB (IMMEDIATE RELEASE) PO PRN ×2 (00:25→08:22)
[2023-07-22] MEDS: ceFAZolin 2000MG 2,000 MG/15 ML SYR IV SCH (05:19)
[2023-07-22] MEDS: ACETAMINOPHEN 500 MG TAB PO PRN (05:23)
[2023-07-22] MEDS: LACTATED RINGER'S 1,000 ML IV SCH ×2 (05:24→05:29)
[2023-07-22] MEDS ORDERED: POLYETHYLENE (MIRALAX) 17 GM PACK PO SCH (06:00)
--- NOTE | 2023-07-22 08:11 | Discharge Summary ---
Date of Service July 22, 2023 Admission HPI Per Admitting Provider This is a 68-year-old male well-known to me the presents after undergoing successful spinal cord stimulator trial and is here for permanent placement. Principal Diagnosis Lumbar postlaminectomy syndrome Discharge Data Allergies Allergy/AdvReac Type Severity Reaction Status Date / Time No Known Allergies Allergy Unknown Verified 07/21/23 09:03 Consultations 07/21/23 18:10 Consult Hospitalist Routine Procedures Performed Operation Date: 07/21/23 10:05 Actual Procedures p Spinal Cord Stimulator Placement(Not Applicable) - Rodrigo Rodriguez DO Ordered Studies 07/21/23 [place] fluoro for pain procedure Routine Hospital Course (1) Postlaminectomy syndrome of lumbar region: Patient 1 corticosteroid placement EGD admission last evening for adequate pain control and observation secondary to concern for developing hematoma to the left flank. This morning his pain is well-controlled he is up and ambulating. Dressings are in place. There is minimal swelling to the right battery pocket. Is neurologically intact. Subsequent discharge home. Discharge orders instructions from the chart for further review. Total Time Total Time Spent Total Time Spent (In Minutes): 20 minutes Discharge Plan Discharge Items Patient Disposition: Home - Home Health Services Reason For Visit: POSTOP Discharge Diagnosis: 1. Reflex sympathetic dystrophy. #2 post lumbar laminectomy syndrome Activity: As commented below Non-emergency contact: Primary Care Provider Call non-emergency contact if: you have any medication questions Follow-up/Referrals: Leander Stewart D.O. [Primary Care Provider] - Diet: Regular Addtl Attending Provider Instructions: ACTIVITY RECOMMENDATIONS: SELF CARE INSTRUCTIONS AFTER A LAMINECTOMY 1. No prolonged sitting (less than 30 minutes for the first 3 weeks after surgery). 2. No bending, lifting more than 5 pounds, or twisting (roll like a log when turning in bed). 3. You may shower 3 days after surgery if no drainage from wound. Thoroughly dry wound. Do not soak in the tub. 4. Please walk as much as you can for exercise. Gradually increase the distance that you walk as your endurance increases. 5. You may drive in 7-10 days if you are comfortable and no longer requiring pain medications. SPECIAL CARE INSTRUCTIONS: VERY IMPORTANT TO READ AND REVIEW A. Your surgical incision has been closed with a cosmetic suture under the skin that will dissolve in about 6 weeks. In 14 days, you can use a pair of clean scissors and cut the suture that is left outside of the skin at the ends of your incision. B. Complications are uncommon, but please contact us if you have any signs or symptoms of: 1. wound infection (fever higher than 102.5 degrees F, redness, separation of wound, drainage, or increasing pain from the incision) 2. blood clots in legs (pain, swelling, redness and warmth in legs) 3. urinary tract infection (fever higher than 102.5 degrees, burning upon urination or increased frequency of urination) 4. nerve problems (inability to walk on your toes or heels, numbness, loss of bowel or bladder control) 5. any other symptoms that concern you. C. Please call the office at if you have any concerns or questions about your operation or recovery. MANAGING PAIN AFTER SPINAL SURGERY 1. Narcotic medication is intended for short-term use and will be provided for surgical pain. Surgical pain usually lasts for a period of 4-6 weeks. Narcotic medication includes Percocet, Vicodin, Darvocet, Tylenol #3 or Lortab. 2. Longer-term pain is more appropriately treated with non-narcotic medication such as Tylenol ES. 3. Muscle spasm is not appropriately treated with narcotics. Muscle relaxers such as Soma, Flexeril or Skelaxin can be used along with Tylenol ES. 4. Remember that we all live with some "aches and pains". This is not unusual or uncommon after an injury or as we get older. 5. We will provide appropriate medication within the normal guidelines of their prescribed use. We will also be very cautious and aware of potential abuse and extended duration of patients' medication needs. 6. Please allow 2-3 days to process refills. Prescriptions will not be mailed but must be picked up at the office. FOLLOW UP VISIT: Keep your scheduled follow-up appointment. Any questions, please call the office at . Pending Studies at Discharge: No Stand-Alone Forms: [employer], Smoking Cessation Medications and DC Order Prescriptions: New oxycodone 5 mg tablet 5 mg PO Q6H PRN (Reason: pain) Qty: 30 0RF Continued gabapentin 300 mg Capsule 300 mg PO TID tramadol 50 mg tablet 50 mg PO Q6H PRN (Reason: pain, moderate) Qty: 30 0RF oxycodone 5 mg tablet 5 mg PO Q6H PRN (Reason: pain, severe) Qty: 30 0RF calcium 600 mg Capsule 600 mg PO QAM prednisone 1 mg Tablet 1 mg PO UD Patient Comments: "weaning off" -- currently 4 mg daily alfuzosin 10 mg Tablet Extended Release 24 Hr 10 mg PO QPM Rx Instructions: administer after the same meal each day Admission Data Admit Date/Time: 07/21/23 15:50 Attending Provider: Rodrigo Rodriguez Admit Provider: Rodrigo Rodriguez Primary Care Provider: Leander Stewart Other Providers: Shalonda Castellano; Glenroy Soto
[2023-07-22] MEDS: GABAPENTIN 300 MG CAP PO SCH (08:20)
[2023-07-22] MEDS ORDERED: dexAMETHasone 6 MG in SYRINGE 0 ML IV SCH (09:00)
--- NOTE | 2023-07-22 09:29 | Consultation ---
Date of Consultation July 22, 2023 Assessment & Plan (1) Postlaminectomy syndrome of lumbar region: 68-year-old male with past med significant with significant for rheumatoid arthritis, postlaminectomy syndrome of lumbar region s/p spinal cord stimulator placement. Postlaminectomy syndrome of lumbar region S/p spinal cord stimulator Management as per orthopedics History of rheumatoid arthritis Currently on prednisone Follow-up with PCP DVT prophylaxis and disposition as per orthopedics History of Present Illness Reason for Consultation: S/p spinal cord stimulator Attending Physician: Rodrigo Rodriguez DO History of Present Illness 68-year-old male with past med significant with significant for rheumatoid arthritis, postlaminectomy syndrome of lumbar region s/p spinal cord stimulator placement. Tolerated procedure fine. Has some soreness at surgery site. Doing okay in the room. No headache. No chest pain or shortness of breath. No nausea. No abdominal pain. No fevers. Resting comfortably. Past medical history. As mentioned above Past surgical history. Bilateral knee surgery. Left shoulder surgery. Social history. No smoking. No alcohol. Family history. Father had prostate cancer per records. Allergies Allergy/AdvReac Type Severity Reaction Status Date / Time No Known Allergies Allergy Unknown Verified 07/21/23 09:03 Home Medications Medication Instructions Recorded Confirmed Type gabapentin 300 mg capsule 300 mg PO TID 01/28/21 07/21/23 History oxycodone 5 mg tablet 5 mg PO Q6H PRN pain, severe #30 02/20/21 07/14/23 Rx tabs tramadol 50 mg tablet 50 mg PO Q6H PRN pain, moderate 02/20/21 07/21/23 Rx #30 tabs alfuzosin 10 mg tablet,extended 10 mg PO QPM 07/14/23 07/21/23 History release 24 hr calcium 600 mg capsule 600 mg PO QAM 07/14/23 07/21/23 History prednisone 1 mg tablet 1 mg PO UD 07/14/23 07/21/23 History oxycodone 5 mg tablet 5 mg PO Q6H PRN pain #30 tabs 07/21/23 Rx Patient History Medical History Rheumatoid arthritis Chronic anemia Degenerative disc disease Neuropathy Surgical History History of lumbar surgery History of shoulder surgery Left History of cystoscopy History of total knee replacement left x6, right x1 History of arthroscopy R/L knees (x6 total) Hx of vasectomy History of esophagogastroduodenoscopy (EGD) History of colonoscopy History of tooth extraction Family History Grandfather (Paternal) Colon cancer Social History Smoking Status: Never smoker Cigarettes Per Day: 7-8 cigs/day (tobacco use x 30 years); Second Hand Exposure: No; Do You Dip or Chew Tobacco: No; Tobacco Cessation Education Requested by Patient: No Hx Alcohol Use: No Hx Substance Use: No Preferred Language: Uzbek Communication Ability: Effective [employer] Work[employer] Required: No Beliefs That Will Affect Care: None marital status: Current Living Situation: Spouse Feels Safe at Home: Yes Safety Concerns: Feels Safe At This Time Assistive Devices: None Review of Systems Review of Systems: All systems reviewed & are unremarkable except as noted in HPI & below Physical Exam Physical Exam: General- Not in distress Head- atraumatic Neck- supple, no JVD. Lungs- clear to auscultation no wheezing or crackles. Heart- regular rhythm; no murmur, no gallop. Abdomen- normal bowel sounds, soft, nontender, no distension. Extremities- no pretibial edema, no erythema seen Neuro- alert, oriented x 3; no facial palsy; no dysarthria; moves extremities. Skin- warm & dry Results & Data Vital Signs (Past 12 Hours) Vital Signs Temp Pulse Pulse Resp BP BP Pulse Ox 07/22/23 03:29 36.5 C 78 16 161/87 H 98 07/21/23 22:00 36.9 C 79 16 120/72 96 07/21/23 21:00 37.1 C 74 16 127/76 96 07/21/23 20:00 36.9 C 82 16 122/75 96 07/21/23 19:30 37.2 C 77 16 131/76 96 O2 Del Method 07/22/23 03:29 Room Air 07/21/23 22:00 Room Air 07/21/23 21:00 Room Air 07/21/23 20:00 Room Air 07/21/23 19:30 Room Air Diagnostic Findings Laboratory Results Blood Type O Positive 07/21/23 10:03 Antibody Screen NEGATIVE 07/21/23 10:03
== END 2023-07-22 10:57 | disposition home health service (06) ==
LOC: ASU 08:31 → PACUINP 08:31 → 3N 19:16